=== PATIENT | female | born 1950 | race Caucasian/White ===

== ENCOUNTER 2017-07-30 11:48 | Inpatient (IN) | payer OTHER ==
[~2017-07-30] VITALS: Ht 172.7 cm; Wt 90.5 kg
[~2017-07-30 11:48] MED LIST: AMARYL4 MG PO; DM MED; LORTAB 5 MG/5001 TA1 PO; PHENERGAN 25 MG25 M1 PO; PROZAC40 MG PO; TRIAMTERENE-HC1 EAC1 PO
[2017-07-30 11:52] VITALS: BP 97/62
[2017-07-30 12:43] LABS: ABSOLUTE NEUTROPHILS 5.2 thou/uL (1.4-8.2); BASOPHILS 1.5 % (0.0-2.0); EOSINOPHILS 1.5 % (0.0-3.0); HEMATOCRIT 40.9 % (37.0-47.0); HEMOGLOBIN 14.1 gm/dL (12.0-15.0); LYMPHOCYTES 30.6 % (24.0-44.0); MCH 30.1 pg (26.0-34.0); MCHC 34.5 g/dL (28.0-37.0); MCV 87.1 fL (80.0-100.0); MONOCYTES 6.9 % (1.0-8.0); PLATELET COUNT 186 thou/uL (150-400); POLYS 59.5 % (36.0-66.0); RBC 4.69 mil/uL (4.20-5.00); WBC 8.8 thou/uL (4.0-11.0)
[2017-07-30 12:47] LABS: CALCIUM 9.3 mg/dL (8.5-10.1); CREATININE 1.4 mg/dL (0.6-1.0); POTASSIUM 4.1 mmol/L (3.5-5.1)
[2017-07-30 12:52] LABS: APTT 26.6 Seconds (24.5-32.8); PROTIME 9.6 Seconds (9.3-11.4)
[2017-07-30 12:53] LABS: ALBUMIN 3.2 g/dL (3.4-5.0); TOTAL BILIRUBIN 0.6 mg/dL (<0.1-1.0)
[2017-07-30 13:59] VITALS: BP 128/66
[2017-07-30 14:27] VITALS: BP 114/48
[2017-07-30 19:29] VITALS: BP 107/65
[2017-07-30 23:42] VITALS: BP 92/60
[2017-07-31 04:08] LABS: ANION GAP 6 mmol/L (7-16); BUN 17 mg/dL (7-18); CHLORIDE 101 mmol/L (98-107); CO2 30 mmol/L (21-32); CREATININE 1.2 mg/dL (0.6-1.0); GLUCOSE 222 mg/dL (74-106); POTASSIUM 3.8 mmol/L (3.5-5.1); SODIUM 137 mmol/L (136-145)
[2017-07-31 04:26] VITALS: BP 118/57
[2017-07-31 07:10] VITALS: BP 95/67
[2017-07-31] MEDS ORDERED: ASPIR 8181 M1 PO (09:45)
[2017-07-31] MEDS ORDERED: LIPITOR 20 MG T20 M1 PO (09:45)
[2017-07-31 09:55] VITALS: BP 95/67
[2017-07-31 09:57] LABS: CHOLESTEROL 181 mg/dL (<200); HDL CHOLESTEROL 43 mg/dL (>40); LDL CHOLESTEROL 104 mg/dL (<100); TC:HDL 4.2 Ratio (Not establshd); TRIGLYCERIDE 170 mg/dL (<150); VLDL 34 mg/dL (<40)
== END 2017-07-31 10:15 | disposition home or self-care (01) | DRG 68 ==
LOC: ER 11:48 → EROBS 13:47 → 2N 13:47
PROVIDERS: Emergency Medicine; Nurse Practitioner
DX: I65.21 Occlusion and stenosis of right carotid artery (principal); H35.30 Unspecified macular degeneration; G89.29 Other chronic pain; N18.9 Chronic kidney disease, unspecified; E11.22 Type 2 diabetes mellitus with diabetic chronic kidney disease; I12.9 Hypertensive chronic kidney disease with stage 1 through stage 4 chronic kidney disease, or unspecified chronic kidney disease; M54.9 Dorsalgia, unspecified; E78.5 Hyperlipidemia, unspecified; E11.65 Type 2 diabetes mellitus with hyperglycemia; F17.210 Nicotine dependence, cigarettes, uncomplicated; Z71.6 Tobacco abuse counseling; Z90.49 Acquired absence of other specified parts of digestive tract; Z79.899 Other long term (current) drug therapy; Z88.8 Allergy status to other drugs, medicaments and biological substances; Z82.49 Family history of ischemic heart disease and other diseases of the circulatory system
CPT/HCPCS: 10081